=== PATIENT | female | born 1955 | race Caucasian/White ===

== ENCOUNTER 2016-05-15 05:51 | Day surgery (SDC) | payer OTHER ==
[2016-05-15] VITALS (8 sets, daily range): BP systolic 132–165; BP diastolic 69–82; PULSE 67–91; RESP 11–19; O2SAT 94–97
[~2016-05-15] VITALS: Ht 165.1 cm; Wt 85.4 kg
[~2016-05-15 05:51] MED LIST: ALPR0.25 PO; FAMC250T4 PO; HYDR-4003 PO; IBUP-1827 PO; LOSA25TA21 PO; SERT50TA9 PO
[2016-05-15] MEDS ORDERED: Ondansetron 2 mg/mL 2 mL Inj ONE (05:52)
[2016-05-15] MEDS ORDERED: Propofol 10,000 mCg/mL 20 mL Inj ONE (05:52)
[2016-05-15] MEDS ORDERED: fentaNYL-PF 50 mCg/mL 2 mL Inj ONE (05:52)
[2016-05-15] MEDS: Lactated Ringer's 1,000 ML IV SCH ×2 (06:06→07:30)
[2016-05-15] MEDS ORDERED: ZOLP10TA5 PO (06:44)
[2016-05-15] MEDS ORDERED: NYQUIL PO (06:44)
--- NOTE | 2016-05-15 06:55 | PCM.HPANE ---
Patient Data Surgeon Admitting Provider: Attending Provider:Pio Chavez MD Primary Care Physician:Estrellita Rojas Other Provider:Oriana Warren Anesthesia Reason for Visit Cervical Polyp, Post Menopausal Bleeding Ht/WT & BMI Height (Feet): 5 Height (Inches): 5 Weight (Kilograms): 85.4 Body Mass Index 31.00 Allergies Coded Allergies: Penicillins (Verified Allergy, Unknown, 05/14/16) Sulfa (Sulfonamide Antibiotics) (Verified Allergy, Unknown, 05/14/16) citalopram (Verified Allergy, Unknown, "didnt like", 05/14/16) clindamycin (Verified Allergy, Unknown, 05/14/16) epinephrine (Verified Allergy, Unknown, heart racing at dentist, 05/14/16) metronidazole (Verified Allergy, Unknown, 05/14/16) mupirocin (Verified Allergy, Unknown, 05/14/16) trazodone (Verified Allergy, Unknown, 05/14/16) varenicline (Verified Allergy, Unknown, 05/14/16) Past Anesthesia History Anesthesia History: Positive for:: Anesthesia Reactions ("higher than a kite" with anti anxiety med), Denies:: Abnormal Airway, Difficult Intubation, Fam Anesthesia Reaction Diabetes History Hx Diabetes?: No MRSA MRSA: No Medications Hypertension Medication: Yes Home Meds Incl Beta Tony: No Reported Medications [Nyquil] No Conflict Check1 Tsp PO HS 05/15/16 Zolpidem 10 Mg Tablet5 Mg PO HS #30 05/15/16 Famciclovir 250 Mg [id number] Mg PO TID PRN skin breakouts Ref 0 05/14/16 Sertraline HCl (Sertraline)50 Mg [id number] Mg PO DAILY 30 Days Ref 0 05/14/16 Hydrocodone-Acetaminophen 5-325 mg 1 Each Tablet1 Tablet PO Q4H PRN For Pain Ref 0 05/14/16 Ibuprofen 600 Mg [id number] Mg PO QID PRN For Pain Ref 0 05/14/16 Losartan Potassium 25 Mg [id number] Mg PO DAILY 05/14/16 History HEENT History: Denies:: Abnormal Airway Cataracts Difficult Intubation Dysphagia Glaucoma Hearing Problem Sinus Problem TMJ Denture Type: Partial- Upper Cardiovascular History: Positive for:: Heart Murmur Hypertension Denies:: Abdominal Aortic Aneurism Edema Valvular Heart Disease (echo 2015) Hx of Respiratory Problem?: No Respiratory History: Denies:: Asthma COPD Emphysema Oxygen Administration Pneumonia Tuberculosis Use of C-PAP Machine Use of Inhalers / NEBS Hx Neurologic Problems?: Yes Neurological History: Positive for:: Headaches (occasional) Denies:: CVA Dizziness Multiple Sclerosis Parkinson's Disease Seizures TIA Hx of GI Problems?: Yes Gastrointestinal History: Positive for:: Heartburn (occas rolaids ) Denies:: Diverticulitis Gall Bladder Disease Gastroesphageal Reflux Gastrointestinal Bleeding Hepatitis Hiatal Hernia Liver Disease Rectal Bleeding Hx of Problems?: No Genitourinary History: Denies:: Kidney Stones Urinary Tract Infection Female Hx: Denies:: Currently Problems with Breasts? Skin History: Denies:: History Skin Disorders? Pressure Ulcers Hx Musculoskeletal Problems?: Yes Musculoskeletal History: Positive for:: Musculoskeletal Trauma (left hip and leg pain issues- physical therapy ) Osteoarthritis (spine) Denies:: Back Injury Fibromyalgia Joint Replacement Myasthenia Gravis Rheumatoid Arthritis Hx of Psycho/Social Problems?: Yes Psycho Social History: Positive for:: Anxiety Hx Depression Hx Surgeries?: Yes (tonsils, c section, ) Hx Any Other Health Problems?: Yes Other History: Denies:: Cancer Thyroid Disease History Blood Transfusions: Positive for:: Accept Blood Products? Denies:: Blood Transfusions Hx Diabetes: No Hx Alcohol Use: YesAlcoholic Drinks Per Day: holidays onlyHx Substance Use: NoHave You Smoked inLast 12 mo: Yes Stop/Bang S-Snoring: Do You Snore Loudly: No T-Tired: feel tired, fatigued: No O-Obsered: Observed not breath: No P-Blood Pressure: treated: No B- Body Mass Index > 35 kg/m2: No A- Age over 50: Yes N- Neck Large Circumference: No G- Gender Male: No LONA Total Score: 1 Risk Assessment Category Category 1A: Patient has history of documented sleep apnea, and HAS NOT received any narcotic, sedative or anesthesia administration during this stay. Category 1B: Patient has history of documented sleep apnea, and HAS received any narcotic , sedative or anesthesia administration during this stay Category 2: Patient has SUSPECTED Obstructive Sleep Apnea, and HAS received any narcotic , sedative or anesthesia administration during this stay. Category 3: Patient has SUSPECTED Obstructive Sleep Apnea and HAS NOT received narcotic, sedative or anesthesia administration during this stay. Category 4: Outpatient in Procedural Areas with known sleep apnea or who screen positive for High Risk via the STOP/BANG questionnaire. Exam Exam Vital Signs Vital Signs Date Time Temp Pulse Resp B/P Pulse Ox O2 Delivery O2 Flow Rate FiO2 05/15/16 06:36 35.0 84 19 165/82 95 Room Air General Appearance: Alert, Oriented X3, Cooperative HEENT/AIRWAY: MP 2, Neck Movement (from), Mouth Opening (wnl) Lungs: Clear to Auscultation Heart: Exam Unremarkable Meds/Labs/Diagnostics Admission Meds Current Medications Lactated Ringer's (Lr) 1,000 ml @ 120 mls/hr Q8H20M IV Last administered on t 06:06; Start 05/15/16 at 05:00; Stop 05/15/16 at 13:19 Plan Impression Patient chart reviewed, patient interviewed and anesthestic plan with risks, benefits, and alternatives discussed, and informed consent obtained. NPO Status: 199905/14/16 ASA Physical Status: ASA2 Mod Systemic Disease Anesthetic Plan: GA Bene/Risks/Altern/Consents: Yes HP Complete Prior to Induction: Yes Ryan Salgado MD May 15, 2016 06:55
[2016-05-15] MEDS ORDERED: Acetaminophen IV 1,000 MG in IV Premix 1 EACH IV ONE (07:00)
[2016-05-15] MEDS ORDERED: Lactated Ringer's 500 ML IV PRN (07:39)
[2016-05-15] MEDS ORDERED: Lactated Ringer's 1,000 ML IV SCH (07:39)
[2016-05-15] MEDS ORDERED: Atropine 0.4 mg/mL Inj IVPUSH PRN (07:40)
[2016-05-15] MEDS ORDERED: HYDROmorphone 1 mg/mL Inj IVPUSH PRN ×2 (07:40→08:40)
[2016-05-15] MEDS ORDERED: hydrALAZINE 20 mg/mL Inj IVPUSH PRN (07:40)
[2016-05-15] MEDS ORDERED: Labetalol 5 mg/mL 4 mL Inj IV PRN (07:40)
[2016-05-15] MEDS ORDERED: fentaNYL-PF 50 mCg/mL 2 mL Inj IVPUSH PRN (07:40)
[2016-05-15] MEDS ORDERED: EPHEDrine Sulfate 50 mg/mL Inj IVPUSH PRN (07:40)
[2016-05-15] MEDS ORDERED: Phenylephrine 10,000 mCg/mL Inj IVPUSH PRN (07:40)
[2016-05-15] MEDS ORDERED: Ondansetron 2 mg/mL 2 mL Inj IVPUSH PRN ×2 (07:40→08:40)
[2016-05-15] MEDS ORDERED: Dexamethasone 4 mg/mL Inj IVPUSH PRN (07:40)
--- NOTE | 2016-05-15 07:44 | HP PRE OP ---
[address] [address] PREOPERATIVE HISTORY AND PHYSICAL PATIENT: DMITRY DIOR : 1955 MR#: [id number] ADMIT: 05/15/2016 JOB ID: [id number] DATE: 05/15/2016 IDENTIFICATION: The patient is a 61-year-old G2, P1 AB1 woman. CHIEF COMPLAINT: Postmenopausal bleeding with finding of polyp, for surgical intervention. HISTORY OF PRESENT ILLNESS: This patient recently developed postmenopausal bleeding. She is menopausal and not on hormonal therapy. She was noted to have a cervical mass in the family physician's office and was thus sent to my office for [employer]PER[employer] consultation. It had been 5 years since prior pelvic examination and Pap test. She is not sexually active. In my office, I noted the large polyp within the cervix, 2 cm x 1 cm, suspect cervical although could not rule out endometrial polyp. The polyp extended upward into the canal. Due to moderate vulvovaginal atrophy and significant discomfort with pelvic examination even in spite of use of smaller speculum and great care, decision was made with the patient to go to the operating room for further evaluation and treatment. This will involve hysteroscopic evaluation to look into the uterine cavity, in light of the postmenopausal bleeding, to determine if possible if this is cervical versus endometrial polyp, and to perform thorough endometrial and endocervical assessment visually and histologically. Patient has thus requested that these procedures happen in the operating room, understanding risks of bleeding, infection, cervical or uterine wall perforation, potential for hemorrhage and need for hysterectomy if emergency, anesthetic risks, cardiorespiratory risks that may be greater in light of smoking, et cetera. All questions have been answered, no guarantees have been stated or implied, and patient has signed informed consent for surgery. In summary, then, the patient will be admitted to [facility] on May 15, 2016 on which day she will undergo operative hysteroscopy, fractional D and C, and excision of cervical (potential endometrial) polyp. PHYSICAL EXAMINATION: On admission, height 65 inches, weight 190 pounds, blood pressure 160/72. Neck: No thyromegaly. Lungs clear auscultation and percussion. Heart regular in rate and rhythm. Abdomen: Nontender. No mass. Note surgical scarring ( scar) at the pelvic examination is vulva and vagina, moderate vulvovaginal atrophy. No concerning epithelial abnormalities. Cervix contains 2 cm long by 1 cm wide polyp that is most likely cervical although cannot rule out endometrial prolapsing polyp. Pelvic examination is limited by discomfort and atrophy. Bimanual examination no obvious palpable mass, difficult exam. DIAGNOSTIC DATA: Preoperative lab report and EKG results not available at the time and place of this dictation. IMPRESSIONS: 1. Postmenopausal bleeding. Recently, suspect related to polyp. 2. Cervical (versus endometrial) polyp, for excision. 3. Significant vulvovaginal atrophy. 4. Not sexually active. 5. Menopausal syndrome, no hormone replacement therapy. 6. Surgical history a. (1983). (Note also miscarriage as part of reproductive history, 1986). b. Tonsillectomy. 7. Hypertension, using losartan 25 mg daily. 8. Albuterol sulfate inhaler use when wheezing or other respiratory symptoms. 9. Smoker. 10. Anxiety, using sertraline. 11. Insomnia, using zolpidem p.r.n. 12. Famciclovir p.r.n. 13. Spine arthritis, using 1/2 of hydrocodone/acetaminophen 5/325 p.r.n. 14. Additional medical history a. Right wrist pain historically. b. Left hip trochanteric bursitis history. c. Left groin pain with radiation into legs/thigh, recent physical therapy evaluation. d. History of heart murmur, not appreciated on recent examination. e. History dizziness. f. History of conduction block. g. Impaired fasting glucose historically. 15. Medication allergies in the past a. Penicillin. b. Flagyl. c. Sulfa. d. Clindamycin hydrogen chloride. e. Bactroban. f. Epinephrine. g. Celexa. h. Trazodone. i. Chantix. 16. Family history of hypertension (mother), stroke (sister), osteoporosis (mom), and "pancreatic neuroendocrine" (sister), heart attack (mother), osteoporosis, suicide (brother). PLAN: This patient was admitted [facility] on May 15, 2016 on which day she will undergo operative hysteroscopy, fractional D and C and excision of cervical versus endometrial polyp.
[2016-05-15] MEDS ORDERED: Ketorolac 15 mg/mL Inj IVPUSH PRN (08:40)
[2016-05-15] MEDS ORDERED: MetoCLOpramide 5 mg/mL 2 mL Inj IVPUSH PRN (08:40)
--- NOTE | 2016-05-15 08:44 | PCM.ANEP1 ---
Post Anesthesia Phase 1 PACU Phase 1 Assessment Vital Signs Vital Signs Date Time Temp Pulse Resp B/P Pulse Ox O2 Delivery O2 Flow Rate FiO2 05/15/16 08:40 91 13 150/69 95 Room Air 05/15/16 08:35 36.6 84 15 132/72 97 Simple Mask 10 05/15/16 06:36 35.0 84 19 165/82 95 Room Air Anesthetic Administered: GA Level of Alertness: Awake, talking RETANA's with Equal Strength: Yes Pain: No Nausea or Vomiting: No Oxygen Delivery: Simple Mask Lungs: Normal Air Movement Ryan Salgado MD May 15, 2016 08:44
--- NOTE | 2016-05-15 09:02 | PCM.ANEP2 ---
Post Anesthesia Evaluation ASA/CMS Post Anesthesia VS in Patient's Normal Range?: Yes Resp Stable; Airway Patent?: Yes CV Function & Hydration Stable: Yes Mental Status Recovered?: Yes Pain control Satisfactory?: Yes N/V Control Satisfactory?: Yes Ryan Salgado MD May 15, 2016 09:01
--- NOTE | 2016-05-16 06:12 | OP ---
[address] [address] OPERATIVE REPORT PATIENT: DMITRY DIOR : 1955 MR#: [id number] ADMIT: 05/15/2016 JOB ID: [id number] DATE OF SURGERY: 05/15/2016 SURGEON: Pio Chavez MD. CELLOPHANE TESTER: None. ANESTHESIA: General. PREOPERATIVE DIAGNOSIS(ES): 1. Postmenopausal bleeding. 2. Cervical versus endometrial) polyp. POSTOPERATIVE DIAGNOSIS(ES): 1. Postmenopausal bleeding secondary to #2. 2. Cervical polyp. PROCEDURES PERFORMED: 1. Operative hysteroscopy. 2. Fractional D and C. 3. Cervical polypectomy. FINDINGS AT SURGERY: There was noted cervical polyp with a long stalk mid-to-high cervical level, all appearing benign. There was no obvious endometrial pathology per hysteroscopic assessment, both cornual areas seen. At procedure's close, cervical polyp had been removed by separation of its stalk at its base and full endometrial and endocervical curettage had been accomplished for histologic assessment, suspect that all will be benign. There was only scant bleeding during the case. I certainly anticipated the patient will do very well during the postoperative time frame. PROCEDURE IN DETAIL: The patient was placed in the supine position on the operating table and general anesthesia was induced. She was then very carefully repositioned in the low dorsal lithotomy position and prepped and draped in the usual sterile manner. Appropriate time-out was taken. A retractor was then placed posteriorly and a tenaculum placed on the anterior cervical lip and another on the posterior cervical lip. Cervical polyp was inspected and then uterus was sounded to 8 cm. Cervix was then dilated up to 7 mm and hysteroscope was then introduced, i.e. the MyoSure, and the uterine cavity was inspected as was the endocervical canal, with finding of endocervical polyp attachment site. Stalk of the polyp was then from the endocervical canal at the attachment point, and no bleeding occurred. Operative hysteroscopy was then complete. Fractional D and C was then accomplished, first with endocervical curettage followed by endometrial curettage. All instruments were removed from the uterus and cervix and vagina, and scant bleeding was noted. Instrument and sponge counts were all found to be correct. The patient was carefully returned to supine position and awakened and taken to the recovery room. ESTIMATED BLOOD LOSS: Scant. COMPLICATIONS: None. PROGNOSIS: Good for surgical recovery.
--- NOTE | 2016-05-17 11:39 | PATH ---
SURGICAL PATHOLOGY Attending Physician:Pio Chavez M.D CASE STATUS: Signed Out PATIENT NAME: DMITRY DIOR PID: [id number] : 1955 DATE COLLECTED:05/15/2016 20:23 SPECIMEN: 1: Endocervix, Biopsy 2: Endocervix, Curettage 3: Endometrium, Curettage CLINICAL HISTORY: POSTMENOPAUSAL BLEEDING 1. ENDOCERVIX POLYP 2. ENDOCERVIX CURETTINGS 3. ENDOMETRIAL CURETTINGS FINAL DIAGNOSIS: 1. Endocervix Polyp: Endocervical polyp, negative for dysplasia and malignancy. 2. Endocervical Curettings: Squamous and endocervical epithelium, negative for dysplasia and malignancy. 3. Endometrial Curettings: Scant inactive endometrium, negative for hyperplasia, atypia and neoplasia. Squamous and endocervical epithelium, negative for dysplasia and malignancy. ICD10 N84.1 GROSS DESCRIPTION: The specimen is received in three formalin filled containers labeled with the patient's name. 1). The specimen is sublabeled "endocervical polyp" and consists of a dark red-[place] teardrop shaped portion of tissue which measures 3.0 x 1.0 x 0.7 CM. The specimen is sectioned into multiple pieces and entirely submitted in cassettes 1A, 1B. 2). The specimen is sublabeled "endocervix curettings" and consists of approximately a 0.5 cc aggregate of tissue, mucoid material and blood which is entirely submitted in cassette 2A. 3). The specimen is sublabeled "endometrial curettings" and consists of a scant aggregate of tissue, mucoid material and blood which is entirely submitted in cassette 3A. 05/15/2016 [facility] MICRO DESCRIPTION: Please see diagnosis. ICD-9 CODES: CPT CODES: 1: 20703 2: 57423 3: 35099 Electronically Signed Out Gena Boudreaux MD [facility], [place] [address] Technical component performed at [facility], [facility] [address], [place], [address]
== END 2016-05-15 23:59 | disposition home or self-care (01) ==
LOC: SAS 05:51
PROVIDERS: ATTEND Obstetrics & Gynecology
DX: N95.0 Postmenopausal bleeding (principal); N84.1 Polyp of cervix uteri; I10 Essential (primary) hypertension; F41.9 Anxiety disorder, unspecified; F32.9 Major depressive disorder, single episode, unspecified; R12 Heartburn; F17.210 Nicotine dependence, cigarettes, uncomplicated
CPT/HCPCS: 58558; J1885; J2250; J2405; J7120